=== PATIENT | female | born 1935 | race Two or more races ===

== ENCOUNTER → 2017-10-12 | Outpatient (CLI) | payer MEDICARE, OTHER ==
[2015-02-14 19:45] VITALS: BP 175/78
--- NOTE | 2017-10-12 15:40 | KCIC ---
EXAM: Right shoulder, 3 views. HISTORY: Fall. COMPARISON: None. FINDINGS: 3 views of the right shoulder obtained. There is no fracture, dislocation or subluxation. IMPRESSION: No acute osseous finding. Electronically signed by: Viola Newman MD (10/12/2017 3:37 PM) [facility] [place]
== END | disposition home or self-care (01) ==
LOC: KCIC 12:23
PROVIDERS: ATTEND Family Medicine
DX: M25.511 Pain in right shoulder (principal); J45.909 Unspecified asthma, uncomplicated; Z88.0 Allergy status to penicillin
CPT/HCPCS: 73030

== ENCOUNTER → 2018-05-08 | Day surgery (SDC) | payer MEDICARE, OTHER ==
[~2018-05-08] MED LIST: AMLO5TAB10 PO; HYDROmorphone 2 MG/ML VIAL IV PRN; IV RINGERS,LACTATED 1000ML 1,000 ML IV SCH; LEVO500T8 PO; LIDOCAINE 1% PF 2 ML VIAL. ID PRN; LUBI24CA7 PO; METR-34 PO; MORPHINE SULFATE 2 MG/ML VIAL. IV PRN; ONDA4TAB11 PO; PANT20TA2 PO; PROCHLORPERAZINE 10 MG/2 ML VIAL. IV PRN; PROPOFOL 20 ML IV ONE; TRAM50TA PO; fentaNYL PF VIAL 100 MCG/2 ML VIAL IV PRN
[2018-05-08 09:46] VITALS: BP 170/80
--- NOTE | 2018-05-08 14:10 | HP ---
ADMIT DATE: 05/08/2018 REFERRING PHYSICIAN: Jame Pappas. HISTORY: An 83-year-old female whose past medical history is significant for hypertension, osteoarthrosis, was seen with persistent epigastric and right upper quadrant pain with nausea. Previous hepatobiliary imaging, gastric emptying study were normal. Per discussion with patient's daughter, there is no symptom reproduction with Kinevac injection. She is here today for upper endoscopy, has been started on Protonix with modest improvement in her symptoms. Denies any change in weight recently. Denies any bleeding. Otherwise has been in good health. PAST MEDICAL HISTORY: Osteoarthrosis, hypertension. ALLERGIES: PENICILLIN. MEDICATIONS: Include amlodipine, levofloxacin, Amitiza, metronidazole, pantoprazole, and tramadol. SOCIAL HISTORY: She is a former smoker and nondrinker. PAST SURGICAL HISTORY: Significant for eye surgery. REVIEW OF SYSTEMS: As per records. PHYSICAL EXAMINATION: GENERAL: Reveals a well-nourished, well-developed female, who is alert and cooperative, in no acute distress. VITAL SIGNS: Temperature 97.2, pulse 92, respirations 16. HEENT: Normocephalic and atraumatic head. Pupils and extraocular muscles are not tested. Sclerae anicteric. NECK: Supple. LUNGS: Clear. CARDIOVASCULAR: Reveals S1, S2 without S3, S4 or appreciable murmur. ABDOMEN: Reveals a soft abdomen, epigastric and right upper quadrant tenderness to deep palpation without appreciable hepatosplenomegaly. EXTREMITIES: Reveals no cyanosis, clubbing or edema. IMPRESSION: Abdominal pain, etiology is to be determined, peptic ulcer disease, gastroparesis, organic heart disease with right coronary artery involvement certainly in the differential; therefore, we will recommend upper endoscopy to further assess, rule out malignancy, Phan's, among other etiologies. Risks and benefits have been discussed previously with the patient, who is willing to proceed at this time. LEISA RICKETTS MD DR: ZELALEM/sariah JOB#: [id number] / [id number]
== END | disposition home or self-care (01) ==
LOC: SURG 08:07
PROVIDERS: ATTEND Internal Medicine Gastroenterology
DX: K29.50 Unspecified chronic gastritis without bleeding (principal); I10 Essential (primary) hypertension; M19.90 Unspecified osteoarthritis, unspecified site; Z79.899 Other long term (current) drug therapy; Z87.891 Personal history of nicotine dependence; Z98.890 Other specified postprocedural states
CPT/HCPCS: 43235; J2704

== ENCOUNTER → 2019-08-18 | Outpatient (CLI) | payer MEDICARE, OTHER ==
[2018-05-08 09:46] VITALS: BP 170/80
[~2019-08-18] MED LIST changes: -HYDROmorphone 2 MG/ML VIAL IV PRN; -IV RINGERS,LACTATED 1000ML 1,000 ML IV SCH; -LIDOCAINE 1% PF 2 ML VIAL. ID PRN; -MORPHINE SULFATE 2 MG/ML VIAL. IV PRN; +ONDA-84 PO; -ONDA4TAB11 PO; -PROCHLORPERAZINE 10 MG/2 ML VIAL. IV PRN; -PROPOFOL 20 ML IV ONE; -fentaNYL PF VIAL 100 MCG/2 ML VIAL IV PRN
--- NOTE | 2019-08-18 09:00 | RAD ---
EXAM: Abdomen sonogram. HISTORY: Pain. TECHNIQUE: Sonographic imaging of the abdomen was performed. COMPARISON: 02/17/2014. FINDINGS: The liver is normal in size. No focal hepatic lesion is seen. The common bile duct is normal in caliber. The gallbladder is unremarkable. The kidneys are normal in size. The left kidney is partially obscured due to body habitus and bowel gas. The spleen, pancreas, aorta and inferior vena cava are predominantly obscured due to body habitus and bowel gas. IMPRESSION: 1. Obscured left upper quadrant and midline structures due to body habitus and bowel gas. 2. No acute sonographic finding. Electronically signed by: Viola Newman MD (08/18/2019 8:56 AM) [id number]
== END | disposition home or self-care (01) ==
LOC: US 09:23
PROVIDERS: ATTEND Family Medicine
DX: R10.84 Generalized abdominal pain (principal)
CPT/HCPCS: 76700